=== PATIENT | female | born 1995 | race Two or more races ===

== ENCOUNTER 2017-01-06 02:28 | Observation (INO) | payer OTHER ==
[~2017-01-06] VITALS: Ht 160 cm; Wt 65.8 kg
[2017-01-06] MEDS ORDERED: PENICILLIN G POT 5MIL/D5 50ML 50 ML IV ONE ×2 (03:04→03:15)
[2017-01-06] MEDS ORDERED: BETAMETHASONE ACET (6MG/ML) 5ML VIAL ONE (03:04)
[2017-01-06] MEDS ORDERED: CLINDAMYCIN 900MG IV 50 ML IV ONE (03:10)
[2017-01-06] MEDS ORDERED: BETAMETHASONE ACET (6MG/ML) 5ML VIAL IM SCH (03:30)
[2017-01-06] MEDS ORDERED: CLINDAMYCIN 900MG IV 50 ML IV SCH (03:30)
[2017-01-06 04:14] LABS: Basophils # (auto) 0 uL; Basophils % (auto) 0.1 % (0.0-2.0); Eosinophils # (auto) 0.2 uL; Eosinophils % (auto) 1.4 % (0.0-7.0); Hematocrit 38.5 % (36.0-46.0); Hemoglobin 13.2 g/dL (12.2-16.2); Lymphocytes # (auto) 2.3 uL; Lymphocytes % (auto) 21.6 % (10.0-50.0); Mean Corpuscular Hemoglobin 31.4 pg (28.0-32.0); Mean Corpuscular Hgb Conc. 34.2 g/dL (32.0-36.0); Mean Corpuscular Volume 91.8 fL (80.0-100.0); Mean Platelet Volume 7.8 fL (6.9-10.8); Monocytes % (auto) 9.4 % (0.0-12.0); Neutrophils # (auto) 7.3 uL; Neutrophils % (auto) 67.5 % (37.0-80.0); Nucleated Red Blood Cells % 0.1 %; Platelet Count (auto) 293 10^3/uL (140-450); Red Cell Distribution Width 13.2 % (11.8-14.3); White Blood Cell 10.8 10^3/uL (4.4-10.8)
[2017-01-06 04:29] LABS: INR 0.87 (0.9-1.15); Partial Thromboplastin Time 27.5 sec (22.64-33.71); Prothrombin Time 9.5 sec (9.37-12.3)
[2017-01-06 04:33] LABS: Urine Bilirubin Negative (Negative); Urine Blood 1+ /uL (Negative); Urine Color Yellow (Yellow); Urine Glucose Normal (Normal); Urine Ketone Negative (Negative); Urine Mucus FEW (None Seen); Urine Nitrite Negative (Negative); Urine RBC 28 /hpf (0 - 4); Urine Squamous Epithelial Cell FEW /hpf (<5); Urine Urobilinogen Normal (Negative)
[2017-01-06 04:39] LABS: Albumin 2.9 g/dL (3.4-5.0); BUN/Creatinine Ratio 16.7; Bilirubin, Total 0.3 mg/dL (0.2-1.0); Calcium 8.6 mg/dL (8.5-10.1); Potassium 3.5 mmol/L (3.5-5.1); Total Protein 7.9 g/dL (6.4-8.2)
[2017-01-06] MEDS ORDERED: PENICILLIN G POTASSIUM 2,500,000 UNITS in D5W 5% 50 ML IV SCH (07:15)
== END 2017-01-06 03:42 | disposition left against medical advice (07) | DRG 778 ==
LOC: LDRP 02:28
PROVIDERS: ADMIT Obstetrics & Gynecology; ATTEND Obstetrics & Gynecology
DX: O60.03 Preterm labor without delivery, third trimester (principal); O09.33 Supervision of pregnancy with insufficient antenatal care, third trimester; Z3A.36 36 weeks gestation of pregnancy
CPT/HCPCS: 36415; 59025; 76805; 80053; 80307; 81001; 85025; 85610; 85730; 86592; 86703; 86762; 86850; 86900; 86901; 87340; 94760; 96365; 96372; G0378; J0702; J2540; J3490